=== PATIENT | male | born 1955 | race Caucasian/White ===

== ENCOUNTER → 2019-01-02 | Day surgery (SDC) | payer OTHER ==
[~2019-01-02] MED LIST: FENTANYL CITRATE/PF 100MCG/2 ML INJ ONE; LIDOCAINE HCL 2% LOCAL INJ 5 ML SDV VIAL INJ ONE; MIDAZOLAM HCL 2 MG/2 ML VIAL ONE; NEXIUM PO; PROPOFOL IV EMULSION 10 MG/ML 20 ML VIAL ONE
--- NOTE | 2019-01-02 12:20 | Operative Report ---
DATE OF PROCEDURE: January 02, 2019 GASTROINTESTINAL PROCEDURE PROCEDURE PERFORMED: Colonoscopy. PREOPERATIVE DIAGNOSIS: History of colon polyps. POSTOPERATIVE DIAGNOSES 1. Colon polyp in the ascending colon. 2. Colon polyp in the descending colon. 3. Internal hemorrhoids. PREOPERATIVE MEDICATIONS: Consisted of general anesthesia. PROCEDURE: Using an [employer] video colonoscope, it was inserted in the patient's rectum and advanced without difficulty to the level of the cecum. The colon was studied from that level back down to the rectum. In the ascending colon, there was an 8-mm size sessile polyp which was removed in 2 pieces from the mid ascending colon. Then in the descending colon, we found a 1.5-cm pedunculated polyp, thick stalk. The stalk was injected with 1:10,000 epi solution, and after the polyp was blanched, it was removed with the electrical snare cautery. The polyp was retrieved and sent to pathology. As we withdrew the colonoscope back down to the rectum, internal hemorrhoids were noted. The colonoscope was withdrawn from the patient's rectum and the procedure was ended. In conclusion, we have findings of 2 colonic polyps, removed with the electrical snare cautery, and internal hemorrhoids. Job#: [id number]
[2019-01-02 12:24] VITALS: BP 117/83
== END | disposition home or self-care (01) ==
LOC: OR 09:20
PROVIDERS: ATTEND Internal Medicine Gastroenterology
DX: Z09 Encounter for follow-up examination after completed treatment for conditions other than malignant neoplasm (principal); D12.2 Benign neoplasm of ascending colon; D12.5 Benign neoplasm of sigmoid colon; K64.8 Other hemorrhoids; K29.00 Acute gastritis without bleeding; K21.9 Gastro-esophageal reflux disease without esophagitis; K44.9 Diaphragmatic hernia without obstruction or gangrene; D50.9 Iron deficiency anemia, unspecified; M26.609 Unspecified temporomandibular joint disorder, unspecified side; Z01.810 Encounter for preprocedural cardiovascular examination; Z87.891 Personal history of nicotine dependence; Z80.0 Family history of malignant neoplasm of digestive organs
CPT/HCPCS: 45381; 45385; 88305; 93005; J2001; J2250; J2704; 45378; 45384

== ENCOUNTER → 2019-08-27 | Outpatient (CLI) | payer OTHER ==
[~2019-08-27] MED LIST changes: -FENTANYL CITRATE/PF 100MCG/2 ML INJ ONE; +IOPAMIDOL 370 MG/ML 200 ML INFUS..BTL INJ ONE; -LIDOCAINE HCL 2% LOCAL INJ 5 ML SDV VIAL INJ ONE; -MIDAZOLAM HCL 2 MG/2 ML VIAL ONE; -PROPOFOL IV EMULSION 10 MG/ML 20 ML VIAL ONE; +SODIUM CHLORIDE 0.9% 250ML 250 ML ONE; +SODIUM CHLORIDE 0.9% 500ML 0 ML ONE
[2019-08-27 09:27] LABS: BLOOD UREA NITROGEN 19 mg/dL (7-26); BUN/CREATININE RATIO 19 (6-25); CREATININE, SERUM 0.99 mg/dL (0.72-1.25); EST GLOMERULAR FILTRATION RATE > 60 ML/MIN (60-)
--- NOTE | 2019-08-27 13:22 | Diagnostic Imaging Report ---
EXAM: CT Abdomen and Pelvis WITHOUT and WITH intravenous contrast - Hematuria protocol INDICATION: Microscopic hematuria COMPARISON: None. TECHNIQUE: Abdomen and pelvis were scanned utilizing a multidetector helical scanner from the lung base to the pubic symphysis before and after administration of IV contrast. Coronal and sagittal reformations were obtained. Hematuria protocol was used. Scan was performed prior to contrast administration and during portal venous phase. IV CONTRAST: 100 mL of Isovue 370 ORAL CONTRAST: Water COMPLICATIONS: None RADIATION DOSE: Total DLP: 1138.5 mGy*cm Dose modulation, iterative reconstruction, and/or weight based adjustment of the mA/kV was utilized to reduce the radiation dose to as low as reasonably achievable. FINDINGS: LOWER THORAX: Normal. HEPATOBILIARY: No focal hepatic lesions. No biliary ductal dilatation. The gallbladder appears unremarkable. SPLEEN: No splenomegaly. PANCREAS: No focal masses or ductal dilatation. ADRENALS: No adrenal nodules. KIDNEYS/URETERS: Right lower pole renal calculi measure 3 mm and 4 mm. Left lower pole renal calculus measures 3 mm. No hydronephrosis. Excretory phase images demonstrate opacification of nearly the entire course of both ureters with the exception of the left mid ureter. No evidence of filling defect to suggest urothelial mass lesion. PELVIC ORGANS/BLADDER: No bladder mass or calculi. Coarse calcifications in the nonenlarged prostate. PERITONEUM / RETROPERITONEUM: No free air or fluid. LYMPH NODES: No lymphadenopathy. VESSELS: Minimal atherosclerotic calcifications of the nonaneurysmal abdominal aorta. GI TRACT: Mild diverticulosis. No CT evidence of diverticulitis. No abnormal bowel wall thickening. No bowel obstruction. Normal appendix. BONES AND SOFT TISSUES: No acute osseous injury. No suspicious lytic or blastic lesions. IMPRESSION: Right and left lower pole renal calculi measure up to 4 mm on the right and 3 mm on the left. No hydronephrosis. No urothelial mass lesion. Diverticulosis without CT evidence of diverticulitis. Signed by: Marcelle Ramos MD on 08/27/2019 1:19 PM
== END ==
LOC: CT 08:33
PROVIDERS: ATTEND Urology
DX: R31.21 Asymptomatic microscopic hematuria (principal)
CPT/HCPCS: 36415; 74178; 82565; 84520; J7050; Q9967; J7040

== ENCOUNTER → 2020-10-25 | Outpatient (CLI) | payer OTHER ==
[~2020-10-25] MED LIST changes: +ATORVASTATIN CA20 MG PO; -IOPAMIDOL 370 MG/ML 200 ML INFUS..BTL INJ ONE; +PENICILLIN V P500 MG PO; -SODIUM CHLORIDE 0.9% 250ML 250 ML ONE; -SODIUM CHLORIDE 0.9% 500ML 0 ML ONE; +SUCRALFATE1 GM PO
== END ==
LOC: US 09:26
PROVIDERS: ATTEND Urology
DX: R39.14 Feeling of incomplete bladder emptying (principal); Z87.442 Personal history of urinary calculi
CPT/HCPCS: 74018; 76770; 76857